=== PATIENT | male | born 1955 | race African-American/Black ===

== ENCOUNTER 2021-12-07 04:23 | Day surgery (SDC) | payer OTHER ==
[2021-12-06 14:38] VITALS: BMI 27.8
[2021-12-07] MEDS ORDERED: LIDOCAINE HCL 1%, 10 MG/ML (20ML VIAL) ONE (15:24)
[2021-12-07] MEDS ORDERED: HEPARIN NA (PORCINE) 5,000 UNITS/ML 1ML VIAL ONE (15:24)
[2021-12-07] MEDS ORDERED: PAPAVERINE HCL 30 MG/1 ML 10 ML VIAL NR ONE (15:25)
[2021-12-07] MEDS ORDERED: MIDAZOLAM HCL 2 MG/2 ML SINGLE DOSE VIAL ONE (15:56)
[2021-12-07] MEDS ORDERED: fentaNYL CITRATE 250 MCG/5 ML VIAL ONE (15:56)
[2021-12-07] MEDS ORDERED: PROPOFOL 20 ML ONE ×2 (15:56)
[2021-12-07] MEDS ORDERED: ceFAZolin SODIUM 1 GM VIAL IVPB ONE (16:25)
[2021-12-07] MEDS ORDERED: ONDANSETRON 4 MG/2 ML VIAL ONE (16:28)
[2021-12-07] MEDS ORDERED: ceFAZolin SODIUM 1 GM VIAL ONE (16:28)
[2021-12-07] MEDS ORDERED: DEXAMETHASONE SOD PHOSPHATE 4 MG/1 ML VIAL ONE (16:28)
[2021-12-07] MEDS ORDERED: LIDOCAINE HCL 1%, 10 MG/ML (20ML VIAL) INF ONE (17:27)
[2021-12-07] MEDS ORDERED: PROMETHAZINE HCL 25 MG/1 ML VIAL IVPUSH PRN (17:37)
[2021-12-07] MEDS ORDERED: ONDANSETRON 4 MG/2 ML VIAL IVPUSH PRN (17:37)
[2021-12-07] MEDS ORDERED: oxyCODONE HCL 5 MG TABLET PO PRN (17:37)
[2021-12-07] MEDS ORDERED: POVIDONE-IODINE OINTMENT 10% - 28.4 GM TUBE TP ONE (17:40)
[2021-12-07 19:36] VITALS: BP 181/72; PULSE 64; TEMP 98
== END 2021-12-07 19:35 | disposition home or self-care (01) ==
LOC: JASU-SURG 04:23
PROVIDERS: ATTEND Surgery
PROC: B548ZZA Ultrasonography of Superior Vena Cava, Guidance (ICD-10-PCS; 2021-12-07)
PROC: 03170ZD Bypass Right Brachial Artery to Upper Arm Vein, Open Approach (ICD-10-PCS; principal; 2021-12-07 16:00)
PROC: 02HV33Z Insertion of Infusion Device into Superior Vena Cava, Percutaneous Approach (ICD-10-PCS; 2021-12-07 16:00)
DX: N19 Unspecified kidney failure (principal)
CPT/HCPCS: 71045-TC-FY; 76000-TC-FY; 82962; 94760; J1644

== ENCOUNTER 2022-01-04 04:20 | Day surgery (SDC) | payer OTHER ==
[2022-01-03 15:56] VITALS: BMI 27.2
[2022-01-04] MEDS ORDERED: POVIDONE-IODINE OINTMENT 10% - 28.4 GM TUBE ONE (13:47)
[2022-01-04] MEDS ORDERED: HEPARIN NA (PORCINE) 5,000 UNITS/ML 1ML VIAL ONE ×2 (13:48→14:01)
[2022-01-04] MEDS ORDERED: PAPAVERINE HCL 30 MG/1 ML 10 ML VIAL NR ONE (13:48)
[2022-01-04] MEDS ORDERED: ETOMIDATE 20 MG/10 ML AMPUL IVPUSH ONE (15:57)
[2022-01-04] MEDS ORDERED: ceFAZolin SODIUM 1 GM VIAL IVPB ONE (16:25)
[2022-01-04] MEDS ORDERED: oxyCODONE HCL 5 MG TABLET PO PRN ×2 (16:27)
[2022-01-04] MEDS ORDERED: ONDANSETRON 4 MG/2 ML VIAL IVPUSH PRN (16:27)
[2022-01-04] MEDS ORDERED: SODIUM CHLORIDE 1,000 ML IV SCH (16:30)
[2022-01-04] MEDS ORDERED: LIDOCAINE HCL 1%, 10 MG/ML (20ML VIAL) INF ONE (16:34)
[2022-01-04] MEDS ORDERED: ceFAZolin SODIUM 1 GM VIAL ONE (16:44)
[2022-01-04] MEDS ORDERED: ONDANSETRON 4 MG/2 ML VIAL ONE (16:44)
[2022-01-04] MEDS ORDERED: hydrALAZINE HCL 20 MG/ML VIAL ONE (18:21)
[2022-01-04 19:24] VITALS: BP 186/65; PULSE 65; TEMP 98.2
== END 2022-01-04 19:35 | disposition home or self-care (01) ==
LOC: JASU-SURG 04:20
PROVIDERS: ATTEND Surgery
PROC: 051 Upper Veins, Bypass (ICD-10-PCS; principal; 2022-01-04 16:00)
DX: I12.0 Hypertensive chronic kidney disease with stage 5 chronic kidney disease or end stage renal disease (principal); E11.22 Type 2 diabetes mellitus with diabetic chronic kidney disease; N18.6 End stage renal disease; Z99.2 Dependence on renal dialysis; Z79.4 Long term (current) use of insulin
CPT/HCPCS: 36415; 82962; 84132; 94760; J1644